=== PATIENT | female | born 1965 | race Caucasian/White ===

== ENCOUNTER 2024-01-26 19:44 | Emergency (ER) | payer SELFPAY ==
[~2024-01-26] VITALS: Ht 170.2 cm; Wt 73.0 kg
[2024-01-26 20:54] VITALS: BP 133/56
== END 2024-01-26 21:06 | disposition home or self-care (01) | DRG 153 ==
LOC: ED 19:44
DX: J06.9 Acute upper respiratory infection, unspecified (principal); F17.200 Nicotine dependence, unspecified, uncomplicated; Z20.822 Contact with and (suspected) exposure to COVID-19